=== PATIENT | male | born 1995 | race Caucasian/White ===

== ENCOUNTER 2019-01-03 00:31 | Emergency (ER) | payer OTHER | END 2019-01-03 03:02 | disposition home or self-care (01) | LOC: ERS 00:31 | DX: S60.444A External constriction of right ring finger, initial encounter (principal); F17.210 Nicotine dependence, cigarettes, uncomplicated; W49.04XA Ring or other jewelry causing external constriction, initial encounter | CPT/HCPCS: 99283 ==